=== PATIENT | female | born 1945 | race Caucasian/White ===

== ENCOUNTER 2017-04-26 05:26 | Day surgery (SDC) | payer OTHER, BC ==
[~2017-04-26] VITALS: Ht 172.7 cm; Wt 83.0 kg
--- NOTE | ~2017-04-26 | EKG ---
[address] [address] ELECTROCARDIOGRAM REPORT Name: MARILYN WHITMOREINE Haylee Room #: DEP [facility]#: [id number] Admission: 04/26/17 Attend Phys: Jeff Turk MD Discharge: 04/26/17 Date of : 47 Report #: [id number] THIS REPORT FOR: //name// [facility] Test Date: 2017-04-26 Test Time: 07:28:20 Pat Name: SIM WHITMORE Department: Room: 150 1 Gender: F Training Lead: Kathi : 1945 Requested By: Jeff Turk Order Number: [id number] MD: Felipe Evans Measurements Intervals [place] Rate: 71 P: 58 UT: 169 QRS: 46 QRSD: 80 T: 13 QT: 417 QTc: 454 Interpretive Statements Sinus rhythm Compared to ECG 05/18/2014 11:38:12 No significant changes Electronically Signed On 04-28-2017 22:04:13 CDT by Felipe Evans [email or web address] <ELECTRONICALLY SIGNED> By: Felipe Evans MD 04/28/17 2204 7 7 Felipe Evans MD /CLOVIS
--- NOTE | ~2017-04-26 | S ---
[facility] [place] [address] SURGICAL PATH RPT PROCEDURE Name: SIM WHITMORE Room #: DEP [facility]..#: [id number] Admission: 04/26/17 Date of : 47 Discharge: 04/26/17 Report #: [id number] Path Case #: [id number] PATHOLOGY REPORT COLLECTION DATE: 04/26/2017 RECEIVED DATE: 04/26/2017 SUBMITTING PHYS: Dr. Jeff Turk OTHER PHYS: Dr. Sanjana Emery SPECIMEN(S) RECEIVED: A.Right tongue lesion * * * * * * * * * * * * FINAL DIAGNOSIS: Tongue lesion, right, excision: - Previous biopsy site present with associated reactive changes - No evidence of residual dysplasia or carcinoma. (SKM/db; 04/29/2017) PATHOLOGIST: Venu Parnell M.D. REPORT ELECTRONICALLY SIGNED BY: Venu Parnell M.D. DATE/TIME: 04/30/2017 13:27 * * * * * * * * * * * * GROSS PATHOLOGY: Received fresh and labeled "right tongue lesion" and it consists of a 1.5 x 0.6 x 0.2 cm roughly pink-garcia piece of tissue which contains a central scar. This portion of the specimen measures 1.5 x 0.6 x 0.2 cm. Also received with the specimen, are two strips of pink-garcia mucosal tissue which Dr. Turk has designated as representing the superior and inferior margins of concern. The superior strip of mucosal tissue measures 1.5 x 0.1 x 0.1 cm. The inferior strip of mucosal tissue measures 1.5 x 0.1 x 0.1 cm. The superior strip of mucosal tissue is inked green and the inferior strip of mucosal tissue is inked red. The two strips of mucosal tissue are frozen together on one micahel. The remainder of the specimen is serially sectioned parallel to the superior/inferior axis and all submitted in block A2. (SKM:; 04/26/2017) FROZEN SECTION DIAGNOSIS: (Shara Parnell M.D.) A1FS. Right tongue lesion: - No evidence of dysplasia or carcinoma at superior and inferior margins. Findings relayed to Dr. Turk at the time of the procedure. (DIAZ:; 04/26/2017) [address] [address] SURGICAL PATH RPT PROCEDURE Name: HAIMSMI Room #: DEP [facility].Viki.#: [id number] Admission: 04/26/17 Date of : 47 Discharge: 04/26/17 Report #: [id number] Path Case #: [id number] Testing performed by [facility] at [address] , [place] [address] CLINICAL HISTORY: Leukoplakia tongue. INITIAL CPT CODE(S): A; 79831, 14182 Professional services performed by [facility] at [facility], [address] [place] [address]. Technical services performed by [facility] at [address] [place] [address], [address], [place] [address]. [facility] [address] [place] [address] PHONE: [phone] DIRECTOR: Matt Pizano M.D. * * * END OF REPORT * * *
--- NOTE | ~2017-04-26 | O ---
[facility] Lexie Cerrato [facility] [place] [address] OPERATIVE REPORT Name: SIM WHITMORE Room #: DEP [facility]..#: [id number] Admission: 04/26/17 Attend Phys: Jeff Turk MD Discharge: 04/26/17 Date of : 47 Report #: [id number] THIS REPORT FOR: //name// CC: Sanjana Turk DATE OF SURGERY: 04/26/2017. PREOPERATIVE DIAGNOSIS: Moderate dysplasia right lateral tongue. POSTOPERATIVE DIAGNOSIS: Margins free of any dysplasia, permanent path pending. PROCEDURES: Excision of right lateral tongue lesion, CO2 laser vaporization with primary closure. SURGEON: Jeff Turk M.D. ANESTHESIA: General oral endotracheal. INDICATIONS: See H and P. FINDINGS: It is an area of leukoplakia involving the right lateral tongue border on the oral cavity portion of the tongue and scarification in this area. TECHNIQUE: After obtaining consent, she was brought to the operating suite, appropriate timeout was performed. General oral endotracheal anesthesia was obtained, the bed was turned 90 degrees. A side biter mouth guard was applied to the left side of the dentition, care being made not to disturb the dentition. This exposed the tongue nicely. The tongue was grasped with 4 x 4 and brought into the field. Local anesthetic was infiltrated submucosally around the areas of leukoplakia after waiting approximately 5 minutes, I outlined an elliptical incision around the areas of leukoplakia sharply with a 15 blade and using iris scissors and pickups. This was sharply divided down to the muscularis layer. I then took the #15 blade and made a superior and inferior mucosal cuts. These were sent for frozen sectioning. While awaiting frozen sectioning I used the CO2 handpiece on a setting of 4 watt continuous and performed CO2 vaporization of the base of the wound. Upon getting a nice flash over that area. A wet 4 x 4 was then used to wipe away the flash and it was cauterized once again with the CO2 laser to effect. It should be noted that prior to using the laser, laser precautions were obtained by all employees and by the patient. Wet towels were placed around the entire oral cavity and the ET tube was protected with wet 4 x 4. There is no inadvertent damage from the laser during the procedure. After completion, after returning pathology with favorable results, the wound was then closed with simple horizontal mattress 4-0 chromic sutures. She was allowed to awaken from anesthesia, went to recovery room in stable condition. [address] [address] OPERATIVE REPORT Name: SIM WHITMORE Room #: DEP [facility]..#: [id number] Admission: 04/26/17 Attend Phys: Jeff Turk MD Discharge: 04/26/17 Date of : 47 Report #: [id number] ESTIMATED BLOOD LOSS: 5 mL. By: 0847 09 Jeff Turk MD /jose
[~2017-04-26 05:26] MED LIST: ASPIR 8181 MG PO; COQ-1030 MG PO; LISINOPRIL-HCT1 EAC1 PO; OSTEO BI-FLEX1 EAC1 PO; UNICOMPLEX M TA1 TA1 PO
[2017-04-26 07:19] LABS: CALCIUM 9.6 mg/dL (8.5-10.1); CREATININE 1.4 mg/dL (0.6-1.0); POTASSIUM 3.9 mmol/L (3.5-5.1)
[2017-04-26 07:54] VITALS: BP 148/73
[2017-04-26 09:55] VITALS: BP 148/73
== END 2017-04-26 14:19 | disposition home or self-care (01) ==
LOC: TBA 05:26 → OR 05:26
PROVIDERS: Otolaryngology
DX: K13.21 Leukoplakia of oral mucosa, including tongue (principal); K14.8 Other diseases of tongue; N18.3 Chronic kidney disease, stage 3 (moderate); I12.9 Hypertensive chronic kidney disease with stage 1 through stage 4 chronic kidney disease, or unspecified chronic kidney disease; Z88.8 Allergy status to other drugs, medicaments and biological substances; Z79.82 Long term (current) use of aspirin; Z98.890 Other specified postprocedural states; Z79.899 Other long term (current) drug therapy
CPT/HCPCS: 50010; 50101; 50386; 50398; 50818; 56528; 62110; 62900; 70005

== ENCOUNTER 2021-05-19 06:19 | Day surgery (SDC) | payer OTHER, BC ==
[~2021-05-19] VITALS: Ht 172.7 cm; Wt 80.7 kg
--- NOTE | ~2021-05-19 | O ---
[facility] [place] [address] OPERATIVE REPORT Name: SIM WHITMORE Room #: DEP [facility].#: [id number] Admission: 05/19/21 Attend Phys: Jeff Turk MD Discharge: 05/19/21 Date of : 47 Report #: [id number] THIS REPORT FOR: cc: Sanjana Emery MD,Sanjana uTrk,Jeff Vergara MD ~ DATE OF SERVICE: 05/19/2021 PREOPERATIVE DIAGNOSIS: Leukoplakia with dysplasia, right lateral tongue. POSTOPERATIVE DIAGNOSIS: Leukoplakia with dysplasia, right lateral tongue. Pathology pending. PROCEDURE: Excision of right lateral tongue lesion with primary closure. SURGEON: Jeff Turk MD ANESTHESIA: General oral endotracheal. INDICATIONS: See H and P. FINDINGS: Firm, scarred cicatrix was noted on the right lateral tongue from previous surgeries. No mass effect was noted within the tongue itself. TECHNIQUE: After obtaining consent and identifying the area with the patient, she was brought to the operating suite, appropriate time out was performed. General oral endotracheal anesthesia was obtained and taped to the patient's left side. The bed was turned 90 degrees. The face was prepped and draped in the usual sterile fashion. Using an X-shaped side biter, the oral cavity was opened and the tongue was exposed. The anterior tip of tongue was grasped in the midline ____ with a towel clip to expose the right lateral tongue. 5 mL of 1% Xylocaine with 1:100,000 epinephrine injected into the field like fashion submucosally around the area of concern on the right lateral tongue. Using a 15 blade outlined an elliptical incision with the axis located in anterior, posterior direction down through mostly scar tissue and down to the muscularis layer. Minimal bleeding was noted. This was mostly scar. The specimen was sent for permanent sectioning. I then took a 15 blade and made a mucosal cut approximately 2 mm in width on the superior and inferior aspect of the above created wound. These were sent off for frozen section. The inferior margin came back, mainly with hyperparakeratosis. There was concern on the anterior superior margin of possible dysplasia, so a larger margin was taken on this area and sent for permanent sectioning. It should be noted that in this area, there was no palpable or visible mucosal changes. I then back elevated a small submucosal flap on the inferior and superior surfaces and closed this wound with simple horizontal mattress sutures using 4-0 chromic. I did tag the second specimen sent with a suture on the anterior most margin of the specimen. [address] [address] OPERATIVE REPORT Name: SIM WHITMORE Room #: [facility].#: [id number] Admission: 05/19/21 Attend Phys: Jeff Turk MD Discharge: 05/19/21 Date of : 47 Report #: [id number] Estimated blood loss was less than 10 mL. She was awakened from the anesthetic and taken to recovery room in stable condition. By: 0739 0824 Jeff Turk MD /jose
[~2021-05-19 06:19] MED LIST changes: +ASA81BEC PO; +CO-ENZYME Q-1010 MG PO; +MULTI VITAMIN1 EACH PO
[2021-05-19 06:45] VITALS: BP 139/60
[2021-05-19 07:21] LABS: CALCIUM 9.3 mg/dL (8.5-10.1); CREATININE 1.4 mg/dL (0.6-1.0); POTASSIUM 3.9 mmol/L (3.5-5.1)
--- NOTE | 2021-05-19 07:21 | EKG ---
[address] [address] ELECTROCARDIOGRAM REPORT Name: SIM WHITMORE Room #: 150-1 [facility]#: [id number] Admission: 05/19/21 Attend Phys: Jeff Turk MD Discharge: Date of : 47 Report #: [id number] [facility] Test Date: 2021-05-19 Test Time: 06:45:16 Pat Name: SIM WHITMORE Department: Room: [facility] Gender: F [employer]: MAYRA : 1945 Requested By: Jeff Turk Order Number: [id number] : Mervin Sheppard Measurements Intervals [place] Rate: 70 P: 80 [place]: 171 QRS: 46 QRSD: 77 T: 17 QT: 408 QTc: 441 Interpretive Statements Sinus rhythm Compared to ECG 04/26/2017 07:28:20 No significant changes Electronically Signed On 05-19-2021 7:20:53 CDT by Mervin Sheppard [email or web address] <ELECTRONICALLY SIGNED> By: Mervin Sheppard MD, [facility] 05/19/21 0720 [phone] Mervin Sheppard MD, FACC /EPI
--- NOTE | 2021-05-19 07:23 | H ---
[facility] [place] [address] HISTORY AND PHYSICAL Name: SIM WHITMORE Room #: 150-1 [facility]#: [id number] Admission: 05/19/21 Attend Phys: Jeff Turk MD Discharge: Date of : 47 Report #: [id number] THIS REPORT FOR: cc: Sanjana Emery MD, Catherine A. MD [place], Jay A. MD ~ DATE OF SERVICE: 05/19/2021 CHIEF COMPLAINT: Tongue lesion. 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 She has had multiple previous biopsies and excisions in the office and in the operating room and in no time has been carcinoma in situ or invasive carcinoma. The last surgical biopsy was in 2016. Since then, she has been followed by myself and her oral surgeon for any recurrence of leukoplakia. In 06/2019, biopsies were performed, which did not show any signs of malignancy. She will return to see me in 03/2021, and she felt that she had a new area that was suspicious. Examination at that time demonstrated linear right lateral anterior leukoplakia with a more stippled area of leukoplakia posterior on the lateral border. Local biopsies were performed in the clinic. The results were consistent on the posterior area of hyperkeratosis and ulceration; however, there was mild to moderate epithelial dysplasia noted in the right anterior tongue lesion. Because of this, I recommended given the dysplasia, we returned to the operating room, do an excision of this area and under frozen section, ensure there is nothing more than dysplasia taking place and attempt primary closure in this area. She understands the risks involved and agrees to proceed forward. ALLERGIES TO MEDICATIONS: NONE. MEDICATIONS: On admission CoQ10, lisinopril 20 mg/hydrochlorothiazide 12.5 mg tablets daily. PAST MEDICAL AND SURGICAL HISTORY: The above-mentioned oral surgical procedures and in addition, she has had tubal ligation. FAMILY HISTORY: Noncontributory. REVIEW OF SYSTEMS: Negative for any GI, , cardiovascular, pulmonary, or hematopoietic issues. PHYSICAL EXAMINATION: VITAL SIGNS: Height of 5 feet 9 inches, weight 175 pounds. Last recorded blood pressure 119/64. HEENT: As outlined above for the oral cavity. NECK: Without any palpable lymphadenopathy. [address] [address] HISTORY AND PHYSICAL Name: SIM WHITMORE Room #: 150-1 [facility]#: [id number] Admission: 05/19/21 Attend Phys: Jeff Turk MD Discharge: Date of : 47 Report #: [id number] CHEST: Clear. HEART: Regular rhythm. ASSESSMENT: History of right oral lesion. PLAN: Will be made for the above-mentioned surgery. <ELECTRONICALLY SIGNED> By: Jeff Turk MD 05/19/21 0723 08 09 Jeff Turk MD /jose
[2021-05-19 09:04] VITALS: BP 139/60
--- NOTE | 2021-05-22 18:06 | PATH ---
[facility] [place] [address] PATHOLOGY RPT PROCEDURE Name: SIM WHITMORE Room #: [facility]..#: [id number] Admission: 05/19/21 Date of : 47 Discharge: 05/19/21 Report #: [id number] Path Case #: [id number] [facility] Accession Number: [id number] . 01 Material submitted: . PART A: tongue - RIGHT LATERAL TONGUE LESION INFERIOR MARGIN FS. Modifiers: right, lateral PART B: tongue - RIGHT LATERAL TONGUE LESION SUPERIOR MARGIN FS. Modifiers: right, lateral PART C: tongue - RIGHT LATERAL TONGUE LESION. Modifiers: right, lateral PART D: tongue - RT LAT TONGUE LSN ANT/SUPERIOR MARGIN STITCH JURADO ANTERIOR BORDER. Modifiers: right, lateral, anterior . 01 Clinical history: . LESION OF TONGUE DYSPLASIA AND HYPERKERATOSIS . 02 Frozen section diagnosis: . FROZEN SECTION DIAGNOSIS: (by Dr. Alessandra Muro) FSA1. Right lateral tongue inferior margin, biopsy: - Ulcer and granulation tissue at posterior end, hyperkeratosis and mild dysplasia at the anterior end. . FSB1. Right lateral tongue lesion superior, biopsy: - Mild dysplasia and hyperkeratosis at posterior end. Cannot exclude high-grade dysplasia at anterior end (limited by tangential sectioning and frozen section artifact). . These findings are discussed with Dr. Jeff Turk in OR 2 at [facility] and a written report is placed in the patient's chart. (IUV:pit; 05/19/2021) . FROZEN SECTION GROSS DESCRIPTION: A. Specimen is received from the OR labeled with the patient's name, and "right lateral tongue lesion inferior margin" consists of an oriented thin strip of mucosa measuring approximately 1.7 x 0.2 x 0.2 cm. It is oriented by a picture provided by Dr. Turk in the OR as inferior margin and additionally posterior as well as anterior. At this point the posterior margin is inked green, and the anterior margin is inked red and the specimen is submitted en face labeled as FSA1, this is subsequently submitted for permanent sections as A1. . B. Specimen is received fresh from the OR labeled with the patient's name, and "right lateral tongue lesion superior margin" it consists of an oriented thin mucosa measuring 1.0 x 0.2 x 0.3 cm. The specimen is oriented by a picture provided by Dr. Turk in the OR as superior margin and additionally posterior as well as anterior indicated on the picture. The posterior margin is inked black [place] [address] PATHOLOGY RPT PROCEDURE Name: SIM WHITMORE Room #: DEP [facility]..#: [id number] Admission: 05/19/21 Date of : 47 Discharge: 05/19/21 Report #: [id number] Path Case #: [id number] inked blue. At this point the specimen is submitted en face for frozen section as FSB1, this is subsequently submitted for permanent sections as B1. (IUV:pit; 05/19/2021) . Frozen section performed at [facility], [address], [place] [address]. IZV/QTP . 02 Diagnosis: A. Tongue, right lateral tongue lesion inferior margin, biopsy: - Ulceration and granulation tissue at posterior end. - Hyperkeratosis and mild focal dysplasia identified at anterior end. - Negative for high grade dysplasia. . B. Tongue, right lateral tongue lesion superior margin, biopsy: - Hyperkeratosis, squamous hyperplasia as well as focal mild dysplasia identified at posteior end and the anterior end. . C. Tongue, right lateral tongue lesion, excision: - Marked hyperkeratosis, parakeratosis, squamous hyperplasia as well as mild to moderate squamous dysplasia. - Extensive ulceration identified focally. - One fragment showingi reactive inflamed skeletal muscle with no evidence of dysplasia or malignancy. . D. Tongue, right lateral tongue lesion anterior/superior margin stitch jurado anterior border, biopsy: - Hyperkeratosis along with focal mild squamous dysplasia. - Underlying skeletal muscle with reactive changes. - Negative for high-grade dysplasia. (IUV:nicholas; 05/22/2021) S 05/22/2021 1720 Local . 02 Electronically signed: . Alessandra Muro MD, Pathologist NPI- [id number] . 01 Gross description: . A. SEE FROZEN SECTION FOR GROSS DESCRIPTION . B. SEE FROZEN SECTION FOR GROSS DESCRIPTION . C. The specimen is received in formalin, labeled "Sim Wood, right lateral tongue lesion". Received are two strips-like segments of pale garcia tissue measuring 0.7 x 0.1 x 0.1 and 1.1 x 0.2 x 0.1 cm in greatest [facility] [address] [place] [address] PATHOLOGY RPT PROCEDURE Name: SIM WHITMORE Room #: DEP [facility]#: [id number] Admission: 05/19/21 Date of : 47 Discharge: 05/19/21 Report #: [id number] Path Case #: [id number] dimensions. The surgical margins are not discernible grossly. The specimen is submitted entirely in cassette C1, with each segment submitted intact. . D. The specimen is received in formalin, labeled "Sim Whitmore, right lateral tongue lesion anterior/superior margin, stitch jurado anterior border". Received is an oriented excision of pale garcia mucosal covered tissue measuring 1.0 x 0.4 x 0.2 cm with a suture designating the anterior margin (12:00). The surgical margins are inked as follows: 12 to 3:00-yellow, three to 6:00-blue, and six to 12:00-black. The mucosal surface displays a well-circumscribed, slightly raised and white-garcia lesion measuring 0.4 x 0.3 cm. The specimen is sectioned into four pieces and entirely submitted in cassettes D1 and D2, with the 12:00 and 6:00 aspects placed in cassette D2. (CAA; 05/19/2021) QAC/QTP 05/19/2021 1713 Local . 02 Pathologist provided ICD-10: K14.0, K14.9 . 02 CPT . 410073, 015283, 911297, 186078, 734587, 422949 Specimen Comment: A courtesy copy of this report has been sent to [phone], [phone] Specimen Comment: [phone] Specimen Comment: Report sent to / DR DOS SANTOS Performed at: [address], [place] [id number] MD Bobby White MD Phone: [phone] Performed at: [address] [id number] MD Alessandra Muro MD Phone: [phone]
== END 2021-05-19 09:40 | disposition home or self-care (01) ==
LOC: TBA 06:19 → OR 06:19
PROVIDERS: ATTEND Otolaryngology
DX: K13.21 Leukoplakia of oral mucosa, including tongue (principal); K14.0 Glossitis; K14.9 Disease of tongue, unspecified; Z98.890 Other specified postprocedural states; Z79.899 Other long term (current) drug therapy; Z98.51 Tubal ligation status; Z88.8 Allergy status to other drugs, medicaments and biological substances
CPT/HCPCS: 50010; 50101; 50386; 56526; 56805; 62110; 62900; 70005